=== PATIENT | male | born 2000 | race Caucasian/White ===

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

== ENCOUNTER → 2022-06-25 | Outpatient (CLI) | payer OTHER, SELFPAY ==
[2022-06-25 15:23] LABS: Erythrocyte Sedimentation Rate 1 mm/hr (0-20)
[2022-06-25 15:24] LABS: Hematocrit 44.7 % (40-54); Hemoglobin 15.5 g/dL (13.0-16.5); Mean Corp Hgb Conc 34.7 g/dL (32-36); Mean Corpuscular Hgb 30.3 pg (27.0-32.0); Mean Corpuscular Volume 87.3 fL (80-94); Platelet Count 413 K/mm3 (150-450); RBC Distribution Width SD 38.7 fl (35.1-43.9); Red Blood Count 5.12 M/mm3 (4.6-6.2); White Blood Count 7.1 K/mm3 (4.4-11.0)
[2022-06-25 15:38] LABS: ALB/GLOB Ratio 1.3 RATIO (0.9-2.4); AST(SGOT) 14 U/L (15-37); Alanine Aminotransfer ALT/SGPT 25 U/L (16-61); Albumin, Serum 4.5 g/dL (3.2-5.0); Alkaline Phosphatase 65 U/L (45-117); Anion Gap 8 (5-15); BUN 11 mg/dL (7-18); BUN/Creat Ratio 11.9 RATIO (10-20); Calcium,Total 9.5 mg/dL (8.5-10.1); Chloride 104 mmol/L (98-107); Creatinine, Serum 0.92 mg/dL (0.70-1.30); EST Glomerular Filtration Rate 109 mL/min (>60); Est Glom Filt Rate - Afr Amer 132 mL/min (>60); Globulin 3.4 g/dL (2.2-4.2); Glucose 81 mg/dL (74-106); Potassium 3.5 mmol/L (3.5-5.1); Protein, Total 7.9 g/dL (6.4-8.2); Sodium Level 140 mmol/L (136-145)
[2022-06-25 15:53] LABS: Vitamin B12 556 pg/mL (211-911)
== END | disposition home or self-care (01) ==
LOC: MFPLAB 11:34
PROVIDERS: PCP Family Medicine; Visit Provider Family Medicine
DX: N39.9 Disorder of urinary system, unspecified (principal); R43.8 Other disturbances of smell and taste
CPT/HCPCS: 36415; 80053; 82607; 85027; 85652

== ENCOUNTER → 2023-01-08 | Outpatient (CLI) | payer OTHER, SELFPAY ==
--- NOTE | 2023-01-08 09:20 | RAD_ITS ---
STUDY: X-RAY CHEST REASON FOR EXAM: Male, 22 years old. Short of breath TECHNIQUE: PA and lateral views of the chest. COMPARISON: Comparison is made with prior study September 11, 2014. FINDINGS: Hyperinflation. The lungs are clear. There is no demonstrated pleural abnormality. Normal size heart. Normal mediastinum and kenny. Normal visualized pulmonary arteries. Normal visualized aortic arch and descending thoracic aorta. Normal visualized thoracic spine. Normal visualized ribs, clavicles, and shoulders. There is no demonstrated abnormality of the visualized soft tissue structures of the upper abdomen. RAD/Chest PA and Lateral IMPRESSION: Hyperinflation. The lungs are clear. Electronically Signed: Brad Cherry MD at 10:02 EDT ,
== END | disposition home or self-care (01) ==
PROVIDERS: PCP Family Medicine; Referring Provider Physician Assistant; Visit Provider Physician Assistant
DX: R06.02 Shortness of breath (principal)
CPT/HCPCS: 71046

== ENCOUNTER → 2023-05-27 | Outpatient (CLI) | payer OTHER, SELFPAY ==
[2023-05-27 15:36] LABS: Absolute Lymphocyte Count 2.09 X10^3/uL (0.83-4.51); Absolute Neutrophil Count 2.8 X10^3/uL (2.0-7.7); Basophil# 0.03 X10^3/uL; Basophil% 0.5 % (0-1); Eosinophil# 0.18 X10^3/uL; Eosinophils% 3.2 % (0-5); Hemoglobin 14.8 g/dL (13.0-16.5); Lymphocyte # 2.09 X10^3/ul (0.83-4.51); Mean Corp Hgb Conc 34.4 g/dL (32-36); Mean Corpuscular Hgb 30.2 pg (27.0-32.0); Mean Corpuscular Volume 87.8 fL (80-94); Mean Platelet Vol. 9.9 fl (6.2-12.0); Monocyte# 0.49 X10^3/uL; Monocyte% 8.7 % (0-10); NRBC Flagged by Analyzer 0 % (0-5); Neutrophil # 2.84 X10^3/uL (2.7-7.7); Neutrophil % 50.2 % (47-70); Platelet Count 387 K/mm3 (150-450); RBC Distribution Width CV 12.2 % (11.6-14.6); White Blood Count 5.7 K/mm3 (4.4-11.0)
[2023-05-27 16:19] LABS: ALB/GLOB Ratio 1.3 RATIO (0.9-2.4); AST(SGOT) 18 U/L (15-37); Alanine Aminotransfer ALT/SGPT 29 U/L (16-61); Albumin, Serum 4.3 g/dL (3.2-5.0); Alkaline Phosphatase 62 U/L (45-117); Anion Gap 7 (5-15); BUN 12 mg/dL (7-18); BUN/Creat Ratio 11.4 RATIO (10-20); Calcium,Total 9.8 mg/dL (8.5-10.1); Chloride 106 mmol/L (98-107); Creatinine, Serum 1.05 mg/dL (0.70-1.30); EST Glomerular Filtration Rate 93 mL/min (>60); Est Glom Filt Rate - Afr Amer 112 mL/min (>60); Globulin 3.4 g/dL (2.2-4.2); Glucose 101 mg/dL (74-106); Potassium 3.8 mmol/L (3.5-5.1); Protein, Total 7.7 g/dL (6.4-8.2); Sodium Level 140 mmol/L (136-145)
== END | disposition home or self-care (01) ==
LOC: MFPLAB 11:43
PROVIDERS: PCP Family Medicine; Visit Provider Family Medicine
DX: R19.8 Other specified symptoms and signs involving the digestive system and abdomen (principal)
CPT/HCPCS: 36415; 80053; 85025

== ENCOUNTER 2023-06-02 19:33 | Emergency (ER) | payer OTHER, SELFPAY ==
[2023-06-02] VITALS (9 sets, daily range): BP systolic 116–137; BP diastolic 59–87; PULSE 98–143; RESP 16–18; TEMP 36.6; O2SAT 97–100; BMI 23.1
--- NOTE | 2023-06-02 19:43 | EKG12_ITS ---
Test Reason : TACHYCARDIA Blood Pressure : / mmHG Vent. Rate : 130 BPM Atrial Rate : 130 BPM P-R Int : 162 ms QRS Dur : 088 ms QT Int : 298 ms P-R-T Axes : 081 070 270 degrees QTc Int : 438 ms Sinus tachycardia Marked ST abnormality, possible inferior subendocardial injury Abnormal ECG Confirmed by GERMÁN MAO, BRIJESH ([id number]), tape editor MARIAJOSE ROMAN ([id number]) on 06/03/2023 10:22:18 AM Referred By: JUAN MANUEL Confirmed By:BRIJESH DUNLAP MD
--- NOTE | 2023-06-02 19:48 | RAD_ITS ---
EXAM: XR CHEST, 1 VIEW CLINICAL INDICATION: chest pain TECHNIQUE: Frontal view of the chest. COMPARISON: 01.08.23 FINDINGS: LUNGS AND PLEURAL SPACES: Unremarkable. No consolidation or edema. No pneumothorax. No effusion. HEART: Unremarkable. Cardiac silhouette not enlarged. MEDIASTINUM: Central airways and mediastinal contour are unremarkable. BONES/JOINTS: Unremarkable. No acute fracture. SOFT TISSUES: Unremarkable. RAD/Chest 1 View (Portable) IMPRESSION: No radiographic evidence of acute cardiopulmonary disease. Electronically Signed: Quan Russell MD at 20:20 EST ,
[2023-06-02] MEDS: 0.9% Normal Saline (1000mL) 1,000 ML 999 ML IV ×2 (19:52→21:00)
[2023-06-02 20:00] LABS: Absolute Lymphocyte Count 2.24 X10^3/uL (0.83-4.51); Basophil# 0.06 X10^3/uL; Basophil% 0.5 % (0-1); Eosinophil# 0.06 X10^3/uL; Eosinophils% 0.5 % (0-5); Hematocrit 44.8 % (40-54); Hemoglobin 15.7 g/dL (13.0-16.5); Lymphocyte # 2.24 X10^3/ul (0.83-4.51); Lymphocyte % 20.5 % (19-41); Mean Corpuscular Hgb 29.6 pg (27.0-32.0); Mean Corpuscular Volume 84.4 fL (80-94); Mean Platelet Vol. 9.2 fl (6.2-12.0); Monocyte# 0.55 X10^3/uL; NRBC Flagged by Analyzer 0 % (0-5); Neutrophil # 7.97 X10^3/uL (2.7-7.7); Platelet Count 438 K/mm3 (150-450); RBC Distribution Width CV 11.9 % (11.6-14.6); RBC Distribution Width SD 35.8 fl (35.1-43.9); Red Blood Count 5.31 M/mm3 (4.6-6.2); White Blood Count 10.9 K/mm3 (4.4-11.0)
--- NOTE | 2023-06-02 20:04 | ED.VIS.DYS ---
HPI History of Present Illness Chief Complaint: Shortness of Breath [facility] Medical History (Updated 01/08/23 @ 09:53 by Dominic COLON, PA) ADD (attention deficit disorder) Asthmatic bronchitis with acute exacerbation Urinary frequency Home Medications cetirizine 10 mg capsule (Zyrtec) 10 mg PO DAILY 09/07/18 [History Last Taken 09/06/18] Allergy/AdvReac Type Severity Reaction Status Date / Time mold AdvReac Other Verified 06/02/23 19:34 Family History Mother Asthma Social History Smoking Status: Never smoker alcohol intake: never EXAM Physical Exam Const Vital Signs: 06/02/23 19:34 06/02/23 19:36 06/02/23 19:45 Temperature 97.9 F 97.9 F Temperature Source Temporal Temporal Pulse Rate 143 H 143 H Respiratory Rate 18 18 Respiratory Effort Respiratory Depth Respiratory Pattern Blood Pressure 130/78 H 130/78 H Blood Pressure Mean 95 95 Pulse Ox 99 99 99 Oxygen Delivery Method Room Air Room Air Room Air 06/02/23 19:47 06/02/23 20:08 06/02/23 20:54 Temperature Temperature Source Pulse Rate 124 H 98 Respiratory Rate 18 18 Respiratory Effort Normal Non-Labored Respiratory Depth Normal Respiratory Pattern Normal Blood Pressure 137/71 H 119/87 H Blood Pressure Mean 93 97 Pulse Ox 97 98 Oxygen Delivery Method Room Air Room Air Room Air 06/02/23 21:00 06/02/23 22:00 Temperature Temperature Source Pulse Rate 99 101 H Respiratory Rate 16 Respiratory Effort Respiratory Depth Respiratory Pattern Blood Pressure 118/67 Blood Pressure Mean 84 Pulse Ox 98 Oxygen Delivery Method Room Air MDM MDM MDM Narrative Medical decision making narrative: HISTORY OF PRESENT ILLNESS: 23-year-old male who is coming by his presents with elevated heart rate. States he developed rapid heart rate approximately 5 PM. Notes shortness of breath and diffuse weakness. States he has had recent coughing and feeling ill. Denies vomiting. Denies any bleeding diathesis. Denies any family or personal history of sudden cardiac . Denies any family history of WPW. The patient denies recent surgery in the last 4 weeks or immobilization in the last 3 days, denies previous diagnosis of DVT or PE, hemoptysis, unilateral leg swelling or malignancy with treatment the last 6 months or palliative. No estrogen use noted. Denies any leg swelling, orthopnea, paroxysmal nocturnal dyspnea REVIEW OF SYSTEMS: Pertinent positives: Palpitations, shortness of breath Pertinent negatives: Syncope, chest pain, focal weakness PHYSICAL EXAM: Nursing triage notes reviewed, Vital signs reviewed Constitutional: please see [facility] HENT: MMM Eyes: Pupils equal round and reactive to light, Extraocular muscles intact Neck: No stridor, no JVD, full neck ROM Lungs: Clear to auscultation, No wheezing or rales. No increased work of breathing, no conversational dyspnea, no accessory muscle use, no nasal flaring. No respiratory distress noted Heart: Fast rate but regular rhythm no murmurs, No rubs and No gallops, 2+ distal pulses (radial, femoral, posterior tibial) in all extremities Abdomen: Soft, there is no tenderness, rigidity, rebound or guarding, no obvious peritoneal signs, no palpable pulsatile abdominal masses, no auscultated abdominal bruit : No CVAT Extremities: No edema Neuro: No focal neurological deficits, cranial nerves II through XII intact, 5/5 strength in all extremities. Intact sensation to light touch in all extremities, 2+ reflexes bilateral patella tendons. Normal gait. No ataxia. Skin: No rash or lesions noted MEDICAL DECISION MAKING: Chief Complaint: Chest pain External records reviewed: no recent cardiac conversations, stress test or echocardiograms noted in the chart. Factors affecting care: none Social determinants of health: Denies illicit drug use History obtained from others: Patient's significant other Consults: none [facility] Narrative: Patient was initially tachycardic Otherwise hemodynamically stable. He is afebrile and nontoxic-appearing. No focal cardiopulmonary normalities. I considered the following differential diagnosis: Arrhythmia, anemia, ACS, PE, pneumonia, dehydration, electrolyte disturbance I considered pulmonary embolism however thought this was less likely given patient's low risk Wells score. There are no clinical signs to suggest heart failure, no lower extreme edema, no rales, no hypoxia. Obtained a broad lab and imaging workup to further elucidate the etiology of the patient's complaints I resuscitated the patient with 2 L normal saline ALL IMAGES (IF OBTAINED) HAVE BEEN PERSONALLY REVIEWED AND INTERPRETED BY MYSELF. I have personally reviewed the patient's chest x-ray. Chest x-ray is unremarkable for pulmonary edema, pneumothorax, pneumonia or focal cardiopulmonary abnormality. EKG with sinus tachycardia, normal axis, normal intervals, no obvious STEMI, no sign of WPW, Brugada syndrome or ARVD CBC without leukocytosis, severe anemia, no thrombocytopenia. High-sensitivity troponin is negative, no evidence of myocardial ischemia x 2 TSH, free T4 were within normal limits making hyperthyroidism unlikely COVID flu and RSV test are negative The patient's heart rate improved after 2 L normal saline suggesting dehydration. The synthesis of the patient's history, physical exam, labs images suggest no acute life-limiting etiology. The patient and/or family, caregivers express understanding. The patient and/or family, caregivers agrees with the plan. Shared decision making: I will have a discussion with the patient and or visitors regarding risk/benefits of further testing or admission. They will be made aware of of the risk/benefits inherent in this decision they will be given the opportunity to voice understanding. Total critical care time today provided was at least 0 [] minutes. This excludes separately billable procedures. Critical care time (if documented) is secondary to the patient having high probability of clinically significant/life threatening deterioration in the patient's condition which required my urgent intervention. Impression: 1. Dyspnea 2. Tachycardia Dispo: Discharge home This note was generated with [employer] dictation software. It may contain incorrect words, spelling, and punctuation that were not noted in review of the chart prior to signing. Lab Data Labs: Laboratory Results - last 24 hr 06/02/23 06/02/23 19:45 22:00 WBC 10.9 RBC 5.31 Hgb 15.7 Hct 44.8 MCV 84.4 MCH 29.6 MCHC 35.0 RDW Std Deviation 35.8 RDW Coeff of Sanket 11.9 Plt Count 438 MPV 9.2 Immature Gran % (Auto) 0.500 Neut % (Auto) 73.0 H Lymph % (Auto) 20.5 Mobile % (Auto) 5.0 Eos % (Auto) 0.5 Baso % (Auto) 0.5 Absolute Neuts (auto) 8.0 H Absolute Lymphs (auto) 2.24 Nucleated RBC % 0 Sodium 140 Potassium 3.5 Chloride 110 H Carbon Dioxide 25.0 Anion Gap 5 BUN 12 Creatinine 1.08 Estim Creat Clear Calc 116.16 Est GFR (MDRD) Af Amer 109 Est GFR (MDRD) Non-Af 90 BUN/Creatinine Ratio 11.1 Glucose 141 H Calcium 10.4 H Troponin I High Sens 4 5 TSH 1.67 Free T4 1.13 Radiography Diagnostic Testing: Clinical Impression(s) from Imaging Studies Chest X-Ray 06/02/23 19:48 IMPRESSION: No radiographic evidence of acute cardiopulmonary disease. Electronically Signed: Quan Russell MD at 20:20 EST Reading Location ID and State: [facility] / [place] , Service support , Discharge Plan Triage Chief Complaint: Shortness of Breath ED Provider: Jf Singh Dx/Rx/DC Orders Prescriptions: No Action Zyrtec 10 MG capsule 10 mg PO DAILY Primary Care Provider: Colton Horton Referrals: Colton Horton MD [Primary Care Provider] -
[2023-06-02 20:22] LABS: Anion Gap 5 (5-15); BUN 12 mg/dL (7-18); BUN/Creat Ratio 11.1 RATIO (10-20); Calcium,Total 10.4 mg/dL (8.5-10.1); Chloride 110 mmol/L (98-107); Creatinine, Serum 1.08 mg/dL (0.70-1.30); EST Glomerular Filtration Rate 90 mL/min (>60); Est Glom Filt Rate - Afr Amer 109 mL/min (>60); Estimated Creatinine Clearance 116.16 ml/min; Glucose 141 mg/dL (74-106); Potassium 3.5 mmol/L (3.5-5.1); Sodium Level 140 mmol/L (136-145); T4 Free Direct 1.13 ng/dL (0.76-1.46); Thyroid Stim Hormone (TSH) 1.67 uIU/mL (0.358-3.74); Troponin-I HS (w/2H Reflex) 4 pg/mL (3.0-78.0)
[2023-06-02 21:50] LABS: Reflex Troponin-HS? (from REC) Y
[2023-06-02 22:27] LABS: Troponin-I HS 5 pg/mL (3.0-78.0)
[2023-06-02] MEDS: Acetaminophen 325 MG Tablet 650 MG PO (22:41)
== END 2023-06-02 22:44 | disposition home or self-care (01) ==
LOC: ED 20:10
PROVIDERS: Emergency Provider Emergency Medicine; PCP Family Medicine; Visit Provider Emergency Medicine
DX: R06.00 Dyspnea, unspecified (principal); R00.0 Tachycardia, unspecified
CPT/HCPCS: 71045; 80048; 84439; 84443; 84484; 85025; 87631; 93005; 99284; J7030; A4216

== ENCOUNTER → 2023-06-05 | Outpatient (CLI) | payer OTHER, SELFPAY ==
[2023-06-05 16:04] LABS: Bacteria 0 SEEN /hpf (None Seen); Mucous, Urine 0 SEEN /hpf (<or=2+); Red Blood Cells-Urine 0 SEEN /hpf (0-5); Squamous Epithelial Cells - UA 0 SEEN /hpf (0-5); White Blood Cells 0 SEEN /hpf (0-5)
[2023-06-05 17:33] LABS: Color, Urine Yellow (Yellow); Glucose, Dipstick Normal (Normal); Ketone-Dipstick Negative (Negative); Leukocyte Esterase-Dipstick Negative /ul (Negative); Nitrite-Dipstick Negative (Negative); Occult Blood-Urine Negative /ul (Negative); Protein-Dipstick Negative (Negative); Urine Bilirubin Dipstick Negative (Negative); Urine Clarity Clear (Clear); Urine Urobilinogen Normal (Normal)
[2023-06-05 17:52] LABS: Hemoglobin A1c 5.3 % (3.8-5.6); PTHIN 24.6 pg/mL (18.4-80.1)
[2023-06-06 14:10] LABS: HIV - WCH Non-Reactive (Nonreactive)
== END | disposition home or self-care (01) ==
LOC: MFPLAB 16:01
PROVIDERS: PCP Family Medicine; Visit Provider Family Medicine
DX: R35.0 Frequency of micturition (principal); E83.52 Hypercalcemia
CPT/HCPCS: 36415; 81001; 83036; 83970; 86695; 86696; 86703; 87536; 87591